=== PATIENT | male | born 1950 | race Caucasian/White ===

== ENCOUNTER → 2018-10-08 | Outpatient (CLI) | payer MEDICARE, OTHER ==
[~2018-10-08] MED LIST: BUDESONIDE EC3 MG PO; CARAFATE1 GM/10 ML PO; ENTOCORT EC3 MG PO; FLOMAX0.4 MG PO; LIALDA1.2 GM PO; LIBRAX CAPSULE1 EACH PO; LINZESS; LOMOTIL TABLET1 EACH; LOSARTAN POTAS100 MG PO; NEXIUM40 MG PO; VERAPAMIL ER120 M1 PO
--- NOTE | 2018-10-08 10:39 | Diagnostic Imaging Report ---
TECHNIQUE: Magnetic resonance imaging of the RIGHT foot was performed WITHOUT injected contrast. HISTORY: Right foot pain COMPARISON: None available. DISCUSSION: Late stages of healing of a nondisplaced fracture of the first metatarsal. Soft tissue swelling and edema of the foot. Mild degenerative arthrosis of the midfoot. Lisfranc alignment and ligament intact. Plantar plates are intact. No intermetatarsal space neuroma. IMPRESSION: Late stages of healing of a nondisplaced fracture of the first metatarsal. Soft tissue swelling and edema of the forefoot. Signed by: Dr. Nuno Urias M.D. on 10/08/2018 10:35 AM
== END ==
LOC: MRI 08:24
PROVIDERS: ATTEND Specialist
DX: M79.671 Pain in right foot (principal)

== ENCOUNTER → 2020-07-06 | Day surgery (SDC) | payer MEDICARE ==
[2020-07-03 13:33] LABS: BASOPHILS % 0.5 % (0.0-1.0); EOSINOPHILS # (AUTO) 0.3 (0.0-0.4); EOSINOPHILS % 4.2 % (0.0-6.0); HEMATOCRIT 43.3 % (38.2-49.6); HEMOGLOBIN 13.9 g/dL (14.0-18.0); LYMPHOCYTES # (AUTO) 1.5 (1.0-3.2); LYMPHOCYTES % 23.7 % (18.0-39.1); MEAN CORPUSCULAR HEMOGLOBIN 30.5 pg (28-32); MEAN CORPUSCULAR HGB CONC 32.1 g/dL (31-35); MEAN CORPUSCULAR VOLUME 95.2 fL (81-99); MONOCYTES # (AUTO) 0.6 (0.2-0.8); NEUTROPHILS # (AUTO) 3.8 (2.1-6.9); NEUTROPHILS % 62.3 % (38.7-80.0); PLATELET COUNT 150 x10e3/uL (140-360); RED BLOOD COUNT 4.55 x10e6/uL (4.3-5.7)
[~2020-07-06] MED LIST changes: +ASPIRIN EC81 MG PO; +ATORVASTATIN CA20 MG PO; +BALSALAZIDE DI750 MG PO; +CALCIUM500 MG PO; +FENTANYL CITRATE/PF 100MCG/2 ML INJ ONE; +IRON PO; +LIDOCAINE HCL 2% LOCAL INJ 5 ML SDV VIAL INJ ONE; +MIDAZOLAM HCL 2 MG/2 ML VIAL ONE; +MULTI-VITAMIN1 EACH PO; +PROPOFOL IV EMULSION 10 MG/ML 20 ML VIAL ONE; +VITAMIN B-121000 MC1 PO; +VITAMIN C500 MG PO
[2020-07-06 11:50] VITALS: BP 147/85
== END | disposition home or self-care (01) ==
LOC: OR 08:40
PROVIDERS: ATTEND Internal Medicine Gastroenterology
DX: K22.70 Barrett's esophagus without dysplasia (principal); K29.40 Chronic atrophic gastritis without bleeding; K44.9 Diaphragmatic hernia without obstruction or gangrene; K21.9 Gastro-esophageal reflux disease without esophagitis; Z85.038 Personal history of other malignant neoplasm of large intestine; K50.90 Crohn's disease, unspecified, without complications; R00.1 Bradycardia, unspecified; H57.04 Mydriasis; I65.29 Occlusion and stenosis of unspecified carotid artery; I10 Essential (primary) hypertension; Z01.810 Encounter for preprocedural cardiovascular examination; Z01.812 Encounter for preprocedural laboratory examination; Z20.822 Contact with and (suspected) exposure to COVID-19; Z79.82 Long term (current) use of aspirin; Z68.32 Body mass index [BMI] 32.0-32.9, adult; Z86.73 Personal history of transient ischemic attack (TIA), and cerebral infarction without residual deficits
CPT/HCPCS: 36415; 43239; 85025; 93005; J2001; J2250; J2704; J3010; U0002